=== PATIENT | female | born 1945 | race Caucasian/White ===

== ENCOUNTER 2017-10-07 20:55 | Emergency (ER) | payer OTHER ==
--- NOTE | 2017-10-07 21:18 | EDPHY ---
H & P Stated Complaint: LAC TO HEAD NO LOC... (SPOUSE 6 DAYS AGO) Time Seen by Provider: 10/07/17 21:17 HPI/ROS: HPI: 72-year-old female who presents with Chief Complaint: LAC TO HEAD NO LOC... (SPOUSE 6 DAYS AGO) Location: back of head Quality: laceration Duration: Prior to arrival Signs and Symptoms: + bleeding, no radiation, no numbness, no weakness, no tingling, no incontinence, no decreased range of motion, no swelling, no pain, no fever Timing: Acute Severity: [id number] Context: Patient is generally healthy, does take baby aspirin daily, presents accompanied by her friend after she accidentally fell off the couch. Patient reports that she was standing on the couch which is not abnormal for her trying to close the blinds. She stepped backwards to get down from the couch and totally missed her footing. She fell directly on her buttocks and then hit the back of her head on metal heater. This was a witnessed event. Reports tetanus is current. Denies LOC/head injury/dizziness/nausea/vomiting/amnesia. At 1st denied posterior neck pain but then during examination noted some bilateral lower cervical tenderness with extreme ranges of motion. Of note patient's spouse recently 6 days ago. Modifying Factors: Comment: ROS: see HPI Constitutional: No fever, no chills, no weight loss Eyes: No blurred vision Respiratory: No shortness of breath, no cough Cardiovascular: No chest pain Gastrointestinal: No nausea, no vomiting no diarrhea Genitourinary: No dysuria Extremities: No myalgias Neurologic: No weakness, no numbness Skin: No rashes Hematologic: No bruising, no bleeding MEDICAL/SURGICAL/SOCIAL HISTORY: Medical history: Generally healthy. Does not take any regular medications. Surgical history: Denies Social history: Retired. CONSTITUTIONAL: extremely pleasant elderly white female, talking to friend at bedside, wake and alert, no obvious distress HEENT: 4 cm linear, horizontal, simple, deep laceration in occipital scalp area ; normocephalic, PERRL, EOMI. no globe entrapment, no raccoon eyes. no Escalante signs.Tympanic membranes clear. No tympanic membrane rupture. Nares patent; no septal hematoma. Oropharynx clear, no exudate and moist pink mucosa. No malocclusion. no dental trauma. Airway patent. No lymphadenopathy. NECK: supple, moderate reproducible bilateral paraspinous muscle lower cervical tenderness; no midline tenderness, flexion 45 degrees, extension 45 degrees, right and left lateral flexion 45 degrees. No meningismus. Cardiovascular: Normal S1/S2, regular rate, regular rhythm, without murmur rub or gallop. PULMONARY/CHEST: Symmetrical and nontender. no crepitus. Clear to auscultation bilaterally. Good air movement. No accessory muscle usage. ABDOMEN: Soft, nondistended, nontender, no ecchymosis, no rebound, no guarding , no peritoneal signs, no masses or organomegaly. No CVAT. PELVIC: no pain with rocking; bilateral hips flexion 125 degrees, extension 30 degrees, with no pain internal rotation and no pain external rotation. BACK: No midline tenderness, no paraspinous spasm, deep tendon reflexes 2/2, no pain with straight leg raise EXTREMITIES: 2/2 pulses, no deformities, no clubbing, no cyanosis or edema. NEUROLOGICAL: no focal neuro deficits. GCS 15. SKIN: Warm and dry, no erythema. no rash. Good capillary refill. Source: Patient, RN/MD Exam Limitations: No limitations - Personal History Current Tetanus/Diphtheria Vaccine: Yes Current Tetanus Diphtheria and Acellular Pertussis (TDAP): Yes - Medical/Surgical History Hx Asthma: No Hx Chronic Respiratory Disease: No Hx Diabetes: No Hx Cardiac Disease: No Hx Renal Disease: No Hx Cirrhosis: No Hx Alcoholism: No Hx HIV/AIDS: No Hx Splenectomy or Spleen Trauma: No - Social History Smoking Status: Never smoked Constitutional: Initial Vital Signs Temperature (C) 36.6 C 10/07/17 20:58 Heart Rate 66 10/07/17 20:58 Respiratory Rate 18 10/07/17 20:58 Blood Pressure 161/84 H 10/07/17 20:58 O2 Sat (%) 97 10/07/17 20:58 O2 Delivery Mode Room Air Allergies/Adverse Reactions: No Known Allergies Allergy (Unverified 10/07/17 21:00) Home Medications: Medication Instructions Recorded Aspirin [Aspirin 81mg (*)] 81 mg PO DAILY 10/07/17 Medical Decision Making - Diagnostics Imaging Results: Imaging Impressions Cervical Spine CT 10/07/17 21:22 Impression: 1. Negative for intracranial hemorrhage. 2. Elderly brain, with atrophy, suspected lacunar-type infarcts and probable white matter small vessel disease. CT Cervical Spine, Without Contrast History: Trauma. Technique: Multislice helical CT through the cervical spine, without contrast, from the skull base to T1. Soft tissue and bone evaluation is performed. Sagittal and coronal reconstructions are obtained and reviewed. Dose reduction techniques were utilized. Findings: Cervical alignment is anatomic. No fracture or dislocation is identified. The relationship between skull base and C1 is normal. The C1-C2 articulation is normal. The odontoid process is normal. The cervical thoracic junction is normal. Soft tissue window evaluation does not show evidence of epidural or prevertebral hematoma. Degenerative changes are seen, with disk space loss and vertebral body osteophytic lipping and facet and uncovertebral arthropathy. Heterogeneous attenuation of the thyroid may reflect nodules, with ultrasound to be considered in the future, as clinically directed. Impression: 1. Negative for fracture. 2. Degenerative changes are noted. 3. Heterogeneous thyroid attenuation may reflect nodules. Results called and discussed with Yuliya Blankenship PA-C, on October 07, [address] 10/07/17 21:22 Impression: 1. Negative for intracranial hemorrhage. 2. Elderly brain, with atrophy, suspected lacunar-type infarcts and probable white matter small vessel disease. CT Cervical Spine, Without Contrast History: Trauma. Technique: Multislice helical CT through the cervical spine, without contrast, from the skull base to T1. Soft tissue and bone evaluation is performed. Sagittal and coronal reconstructions are obtained and reviewed. Dose reduction techniques were utilized. Findings: Cervical alignment is anatomic. No fracture or dislocation is identified. The relationship between skull base and C1 is normal. The C1-C2 articulation is normal. The odontoid process is normal. The cervical thoracic junction is normal. Soft tissue window evaluation does not show evidence of epidural or prevertebral hematoma. Degenerative changes are seen, with disk space loss and vertebral body osteophytic lipping and facet and uncovertebral arthropathy. Heterogeneous attenuation of the thyroid may reflect nodules, with ultrasound to be considered in the future, as clinically directed. Impression: 1. Negative for fracture. 2. Degenerative changes are noted. 3. Heterogeneous thyroid attenuation may reflect nodules. Results called and discussed with Yuliya Blankenship PA-C, on October 07, 2017 at 2213. Procedures: Procedure: Laceration repair. Verbal consent was obtained from the patient. The 4 cm linear, horizontal, simple, deep laceration in occipital scalp area laceration was anesthetized in the usual fashion using 0.5% 4 mL of bupivacaine with epinephrine. The wound was irrigated, draped and explored to its base with a gloved finger. There were no deep structures involved. No tendon injury was identified. The wound was repaired with #5 jabari. Good hemostasis was achieved and patient tolerated procedure well. The procedure was performed by myself. ED Course/Re-evaluation: Based on [place] head CT and cervical CT protocol; age greater than 65 years old and pain posterior neck; head CT scan and cervical CT scan ordered Wound care and laceration repair given Tetanus booster up-to-date No signs of neurovascular compromise/tenting of skin/compartment syndrome/ extremities and joints examined above and below area of concern and are neurovascularly intact. Fall was witnessed and mechanical in nature. No further workup required. 2215: Called by radiologist, Dr. 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 Cervical CT scan shows no fracture; [id number] degenerative changes noted. This patient was seen under the supervision of my secondary supervising physician. I evaluated care for this patient independently. Differential Diagnosis: Head injury including but not limited to concussion, skull fracture, intraparenchymal contusion, subarachnoid, subdural and epidural hematoma. Departure - Departure Disposition: Home, Routine, Self-Care Clinical Impression: Occipital scalp laceration Qualifiers: Encounter type: initial encounter Qualified Code(s): S01.01XA - Laceration without foreign body of scalp, initial encounter Degenerative arthritis of cervical spine Qualifiers: Spinal osteoarthritis complication: unspecified spinal osteoarthritis Qualified Code(s): M47.812 - Spondylosis without myelopathy or radiculopathy, cervical region Head injury, intracranial, without loss of consciousness or fracture Qualifiers: Encounter type: initial encounter Qualified Code(s): S06.890A - Other specified intracranial injury without loss of consciousness, initial encounter Cervical muscle strain Qualifiers: Encounter type: initial encounter Qualified Code(s): S16.1XXA - Strain of muscle, fascia and tendon at neck level, initial encounter Condition: Good Instructions: Concussion (ED), Head Injury (ED), Staple Care (ED), Facial Laceration (ED), Cervical Strain (ED) Additional Instructions: Head CT scan and cervical CT scan shows no acute intracranial or spinal process. Avoid washing your hair for 48 hr. After 48 hr, you may wash your hair as per your normal routine. Take Tylenol 650 mg every 4 hours and/or Ibuprofen 600 mg every 8 hours with food as needed for pain, headache. Apply ice for 30 minutes at a time to the back of her head; 2-3 times per day for the next 1 days. Monitor for signs and symptoms of concussion and observe concussion precautions. Wound Care Follow-Up: Removal of jabari in [5] days. Staple removal is complimentary in uncomplicated cases. Infection or abnormal findings would require reevaluation by the MD. In that case, you may be billed. Return to the ER immediately if you have progressive headaches, neurologic deficits, gait abnormality, visual disturbance, slurred speech, or any other symptom that concerns you. Referrals: PCP Not In,[place] [Medical Doctor] - 5-7 days, if not improved
[2017-10-07 22:29] VITALS: BP 170/78
== END 2017-10-07 22:28 | disposition home or self-care (01) ==
PROC: 0HQ0XZZ Repair Scalp Skin, External Approach (ICD-10-PCS; principal; 2017-10-07)
DX: S06.890A Other specified intracranial injury without loss of consciousness, initial encounter (principal); S01.01XA Laceration without foreign body of scalp, initial encounter; S16.1XXA Strain of muscle, fascia and tendon at neck level, initial encounter; M47.812 Spondylosis without myelopathy or radiculopathy, cervical region; Z79.82 Long term (current) use of aspirin; W08.XXXA Fall from other furniture, initial encounter; Y99.8 Other external cause status; Y93.89 Activity, other specified